=== PATIENT | male | born 1985 | race Caucasian/White ===

== ENCOUNTER 2021-11-14 13:52 | Emergency (ER) | payer OTHER, SELFPAY ==
[2021-11-14 14:12] VITALS: BP 135/84; PULSE 76; RESP 14; TEMP 36.8; O2SAT 99
--- NOTE | 2021-11-14 15:00 | ED.EAR ---
HPI - Ear Problem General Chief complaint: Ear Stated complaint: Left ear discharge, fullness Time Seen by Provider: 11/14/21 14:50 Source: patient, RN notes reviewed and old records reviewed Mode of arrival: ambulatory Limitations: no limitations History of Present Illness HPI Narrative: 36-year-old male who presents to [facility] care with complaints of 6-7 days pressure to his left ear. He states he has used his Debrox and liquid flush when he started having a pressure feeling in left ear 6-7 days ago with some yellowish wax removed. He reports that he continues to have symptoms of pain, pressure and decreased hearing to his left ear. He states that he has yellowish greenish drainage from his left ear. Patient denies any known fevers chills or sweats. MD Complaint: ear pain and ear discharge Location: left ear Discharge from ear: Reports yes - purulent Related Data Allergies Allergy/AdvReac Type Severity Reaction Status Date / Time amoxicillin Allergy Mild Rash Verified 11/14/21 14:25 Review of Systems Review of Systems: CONSTITUTIONAL: Denies fever, chills, or sweats. EYES: Denies visual changes, redness, or discharge. ENT: Denies rhinorrhea, congestion, sore throat, positive for left ear pain and pressure with drainage CARDIOVASCULAR: Denies chest pain, palpitations, or edema. RESPIRATORY: Denies cough or dyspnea. GASTROINTESTINAL: Denies abdominal pain, nausea, vomiting, or diarrhea. GENITOURINARY: Denies dysuria or hematuria. SKIN: Denies rash or itching. MUSCULOSKELETAL: Denies back pain, joint pain, or myalgia. NEUROLOGIC: Denies headache, numbness, or weakness. PSYCHIATRIC: Denies anxiety or depression. All systems reviewed & are unremarkable except as noted in HPI and below PMFSH Past Medical History Medical History (Updated 11/16/21 @ 11:09 by Rose Mary Santos NP) Ear infection Surgical History Surgical History (Updated 11/16/21 @ 11:02 by Rose Mary Santos NP) History of placement of ear tubes Social History Social History (Updated 11/16/21 @ 11:02 by Rose Mary Santos NP) Smoking status: Never smoker Alcohol intake: current Alcohol use details: social Substance use: never Living arrangements: with family Gender identity (if verbalized by the patient): Male Comments At time of signature, agree with nursing past medical, surgical, social and family history. There is no relevant family history pertinent to the presenting complaint Exam Narrative: GENERAL: Well-appearing, well-nourished, and in no acute distress. HEAD: Normocephalic, atraumatic. EYES: PERRLA and EOMI. ENT: Nares clear, no rhinorrhea or epistaxis. Mucous membranes moist. Right TM normal with good light reflex, left TM red with yellow-greenish drainage, throat pink with no lesions or exudates or tonsil swelling. CHEST: Clear to auscultation. No respiratory distress.SAO2 99%on room air HEART: Regular rate and rhythm. No murmur heard. Normal peripheral pulses. ABDOMEN: Soft, nontender, nondistended, normal active bowel sounds. EXTREMITIES: Normal range of motion. No edema. SKIN: Warm, dry, no rash. NEURO: No focal deficits. Alert and oriented x3. Course Course Level of Care: Express Care Visit Vital Signs Vital signs: Vital Signs Temperature 36.8 C 11/14/21 14:12 Pulse Rate 76 11/14/21 14:12 Respiratory Rate 14 11/14/21 14:12 Blood Pressure 135/84 11/14/21 14:12 Pulse Oximetry 99 11/14/21 14:12 Oxygen Delivery Room Air 11/14/21 14:12 Temperature 36.8 C 11/14/21 14:12 Pulse Rate 76 11/14/21 14:12 Respiratory Rate 14 11/14/21 14:12 Blood Pressure 135/84 11/14/21 14:12 Pulse Oximetry 99 11/14/21 14:12 Oxygen Delivery Room Air 11/14/21 14:12 Medical Decision Making Differential Diagnosis Differential Diagnosis: URI. otitis externa, otitis media, left ear otalgia, decreased hearing left ear Medical Records Medical records reviewed: Yes I reviewed the external patient
== END 2021-11-14 15:16 | disposition home or self-care (01) ==
PROVIDERS: Emergency Provider Registered Nurse
DX: H66.92 Otitis media, unspecified, left ear (principal)
CPT/HCPCS: 99213; G0463

== ENCOUNTER 2023-06-07 13:49 | Emergency (ER) | payer OTHER, SELFPAY ==
[2023-06-07 14:04] VITALS: BP 152/87; PULSE 60; RESP 16; TEMP 36.3; O2SAT 99
--- NOTE | 2023-06-07 14:10 | ED.SKABFB ---
HPI - Skin/Abscess/Foreign Bdy General Chief complaint: Skin/Abscess/Foreign Body Stated complaint: Cyst on top of head Time Seen by Provider: 06/07/23 14:10 Source: patient, RN notes reviewed and old records reviewed Mode of arrival: ambulatory Limitations: no limitations History of Present Illness HPI narrative: 38-year-old male presents to the [facility] with a cyst to the top of his head that is been there for years, started draining couple days ago. Purulent drainage noted Onset (ago): day(s) (2-3) Related Data Allergies Allergy/AdvReac Type Severity Reaction Status Date / Time amoxicillin Allergy Mild Rash Verified 11/14/21 14:25 Review of Systems Review of Systems: All systems reviewed & are unremarkable except as noted in HPI and below Constitutional: Constitutional: Reports no additional constitutional complaints Eyes: Eyes: Reports no additional eye complaints ENT: Reports system reviewed and no additional complaints, except as documented Cardiovascular: Cardiovascular: Reports no additional cardiovascular complaints, Denies chest pain and Denies dyspnea Respiratory: Respiratory: Reports no additional respiratory complaints, Denies chest congestion, Denies cough and Denies dyspnea Gastrointestinal: Gastrointestinal: Reports no additional gastrointestinal complaints, Denies abdominal pain, Denies nausea and Denies vomiting Musculoskeletal: Musculoskeletal: Reports no additional musculoskeletal complaints Integumentary/Breasts: Skin/Breast: Reports as per HPI Neurologic: Reports system reviewed and no additional complaints, except as documented Psychiatric: Psychiatric: Reports no additional psychiatric complaints Allergic/Immunologic: Allergic/Immunologic: Reports no additional allergic/immunologic complaints PMFSH Past Medical History Medical History Ear infection Surgical History Surgical History History of placement of ear tubes Social History Social History Smoking status: Never smoker Alcohol intake: current Alcohol use details: social Substance use: never Living arrangements: with family Gender identity (if verbalized by the patient): Male Comments At the time of my signature, I reviewed and agree with the nursing past medical, surgical, social, and family history. There is no relevant family history pertinent to the patient complaint. Exam Const: General: cooperative, healthy appearing, comfortable, no acute distress, well developed, alert and well nourished Nutritional Appearance: well nourished Orientation/consciousness: patient oriented x3 Limitations: no limitations HENMT: Head: normal to inspection Head images: 1. 2 x 3 cm cyst, open, draining green yellow purulent drainage. Mild erythema Ears: hearing grossly normal bilaterally and external ears normal Face/Nose/Sinus: Normal external nose present, Normal nares present, Normal nasal mucous membranes and turbinates present, normal facial exam and face symmetric Face and sinus: normal facial exam and face symmetric Mouth: Yes Normal oral and palatal mucosa present, Yes lip normal and Yes moist mucous membranes Throat: posterior oropharynx normal and uvula midline Eyes: General: appearance normal, both eyes and all related structures Alignment and Position: alignment normal Periorbital: periorbital findings normal Pupils: Equal, round and reactive pupils present EOM: EOMs intact bilaterally Neck: Neck: normal visual inspection, full ROM, no lymphadenopathy and no meningeal signs Chest: Chest palpation & inspection: normal inspection of the chest Resp: Effort & Inspection: normal respiratory effort and able to speak in complete sentences Auscultation: clear to auscultation bilaterally, no crackles, no rales, no rhonchi and no wheezes Cardio: Rat
== END 2023-06-07 14:50 | disposition home or self-care (01) ==
PROVIDERS: Emergency Provider Nurse Practitioner; PCP Hospitalist
DX: L72.9 Follicular cyst of the skin and subcutaneous tissue, unspecified (principal)
CPT/HCPCS: 87070; 87205; 99213; G0463

== ENCOUNTER → 2023-07-03 15:40 | Outpatient (REF) | payer OTHER, SELFPAY | LOC: ANHLAB 15:40 | PROVIDERS: PCP Hospitalist; Visit Provider Plastic Surgery | DX: L72.11 Pilar cyst (principal) | CPT/HCPCS: 88305 ==

== ENCOUNTER 2024-09-03 11:15 | Emergency (ER) | payer OTHER, SELFPAY ==
[2024-09-03 11:19] VITALS: BP 144/93; PULSE 96; RESP 18; TEMP 35.8; O2SAT 97
--- OUTSIDE RECORDS SUMMARY | 2024-09-03 11:26 | XMS_ITS | Clinical Summary ---
Author Organization [facility] [place] [facility] Address [address] [address] Care Team Providers Care Internal Sales Name Role Phone Kurtis Quiroz MD Primary Care Provider [phone] Allergies Active Allergy Reactions Criticality Noted Date Comments Amoxicillin Rash Medium 01/02/2024 Medications No known medications Active Problems Problem Noted Date Diagnosed Date Class 2 obesity due to exces s calories without serious comorbidity with body mass index (BMI) of 38.0 to 38.9 in adult 01/02/2024 Assessment & Plan (01/02/2024 11:18 AM CDT): Improving; patient reports that he has been working on weight loss, has lost nearly 20 lb over the past 1-1.5 years Continue with dietary changes to reduce caloric intake; continue with regular physical activity Exposure to chemical compounds 01/02/2024 Assessment & Plan (01/02/2024 11:20 AM CDT): Patient reports exposure to chemicals during previous and current job; including agricultural and industrial compounds Patient makes good use of personal protective equipment to reduce exposure No signs or symptoms of disease secondary to exposure Family history of cancer 01/02/2024 Assessment & Plan (01/02/2024 11:20 AM CDT): Patient has multiple episodes of cancer on paternal side; will continue with routine screening of cancers Immunizations Immunization Administration Dates Next Due DTP 01/01/1986, 5,1984,1984 MMR 12/04/1985 OPV 01/01/1986, 5,1984,1984 Pfizer SARS-CoV-2 Monovalent Vaccination (12+ Yrs) PURPLE 05/09/2021,04/20/2021,02/28/2021 Td, adsorbed 11/26/1998 Surgical History Surgery Date Site/Laterality Comments CYST REMOVAL 06/22/2023 - 07/22/2023 [facility]; cyst located on pt head Family History Medical History Relation Name Comments Cancer Father's Sister Cancer Maternal Grandmother Cancer Paternal Grandfather Esophageal cancer Paternal Grandfather to bacco use Breast cancer Paternal Grandmother Cancer Paternal Grandmother Relation Name Status Comments Father's Sister Maternal Grandmother Paternal Grandfather Paternal Grandmother Social History Tobacco Use Types Packs/Day Years Used Date Smoking Tobacco: Never Smokeless Tobacco: Never Tobacco Cessation:Counseling Given: Not Answered AUDIT-C Answer Date Recorded Q1: How often do you have a drink containing alc ohol? 2-3 times a week 01/02/2024 Q2: How many drinks containi ng alcohol do you have on a typical day when you are drinking? 5 or 6 01/02/2024 Q3: How often do you have si x or more drinks on one occasion? 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 Gender Identity Not on file Sexual Orientation Not on file Obstetrics History Last Filed Vital Signs Vital Sign Reading Time Taken Comments Blood Pressure 120/80 01/02/2024 8:14 AM CDT Pulse 72 01/02/2024 8:14 AM CDT Temperature 36.6 C (97.8 F) 01/02/2024 8:14 AM CDT Respiratory Rate 18 01/02/2024 8:14 AM CDT Oxygen Saturation 98% 01/02/2024 8:14 AM CDT Inhaled Oxygen Concentration - - Weight 129.2 kg (284 lb 12.8 oz) 01/02/2024 8:14 AM CDT Height 182.9 cm (6') 01/02/2024 8:14 AM CDT Body Mass Index 38.63 01/02/2024 8:14 AM CDT Plan of Treatment Health Maintenance Due Date Last Done Comments Varicella Vaccines (1 of 2 - 13+ 2-dose series) 1997 DTaP/Tdap/Td Vaccine (5 - Tdap) 11/27/1998 11/26/1998, 01/01/1986, 1984, Additional history exists Covid-19 Vaccine ( season) 2023 05/09/2021, 04/20/2021, 02/28/2021 Influenza Vaccine (Season Ended) 2024 Depression Screening 01/01/2025 01/02/2024 Regular Well Visit/Exam 18-64 01/01/2025 01/02/2024 Hepatitis B Screening Completed 01/02/2024 Hepatitis C Screening Completed 01/02/2024 HPV Vaccines Aged Out No longer eligi ble based on patient's age to complete this topic Pneumococcal vaccine <65 Aged Out No longer eligible based on patient's age to complete this topic Procedures Procedure Name Priority Date/Time Associated Diagnosis Comments HEPATITIS C ANTIBODY Routine 01/02/2024 9:05 AM CDT Encounter for hepatitis C screening test for low risk patient from Last 3 Months or Most Recently Relevant to Health Maintenance Results * Hepatitis C antibody Blood (01/02/2024 9:05 AM CDT) Hep C Ab Nonreactive Nonreactive Comment: Interpretive Data Nonreactive: Antibodies to HCV not detected. Does NOT exclude the possibility of recent exposure to HCV. Equivocal: Equivocal for HCV antibodies. Supplemental molecular testing will be automatically performed to determine infection status in accordance with current CDC screening recommendations. Reactive: Positive for HCV antibodies. This may represent current or past HCV infection. Supplemental molecular testing will be automatically performed to determine current infection status in accordance with current CDC screening recommendations. Interpretive data was last revised on 2019. Testing performed by: [facility], [address] [place] [address], [place]., [address] Blood 01/02/2024 9:05 AM CDT 01/02/2024 12:43 PM CDT Kurtis Quiroz MD LAB MICROBIOLOGY - GENERA L ORDERABLES Final Result [facility] [address] [facility] Department [place] [address] from Last 3 Months or Most Recently Relevant to Health Maintenance Insurance [facility] [facility] HMO Care Teams Internal Sales Relationship Specialty Start Date End Date [place] [address] PCP - General Family Medicine 01/02/24
--- OUTSIDE RECORDS SUMMARY | 2024-09-03 11:26 | XMS_ITS | Referral Summary ---
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 Testing performed by: [facility], [address] [place] [address], [place]., [address] Blood 01/02/2024 9:05 AM CDT 01/02/2024 12:43 PM CDT Kurtis Quiroz MD LAB MICROBIOLOGY - GENERA L ORDERABLES Final Result [facility] Department [place] [address] from Last 3 Months or Most Recently Relevant to Health Maintenance Insurance [facility] HMO Care Teams Elevator Constructor Supervisor Relationship Specialty Start Date End Date Kurt[place] [address] PCP - General Family Medicine 01/02/24
[2024-09-03 11:40] LABS: EDCOVIDSCREEN Negative (Negative); EDINFLUASCREEN Negative (Negative); EDINFLUBSCREEN Negative (Negative)
--- NOTE | 2024-09-03 11:41 | ED_ITS ---
HPI - URI/Sore Throat General Chief Complaint: Upper Respiratory Infection Stated Complaint: cough/fever Time Seen by Provider: 09/03/24 11:42 Source: patient and RN notes reviewed Mode of arrival: ambulatory Limitations: no limitations History of Present Illness HPI Narrative: 39-year-old male presents with concern for 2 week history of persistent cough. Reports over the last few days he has had sneezing, runny nose, stuffy nose. Reports he has taken multiple [id number] medications without relief. He reports fever, chills, aches, sweats MD elicited complaint: cough and sore throat Related Data Allergies Allergy/AdvReac Type Severity Reaction Status Date / Time amoxicillin Allergy Intermediate Rash Verified 09/03/24 11:27 Review of Systems Review of Systems: CONSTITUTIONAL: Reports that malaise, chills, sweats, fever. EYES: Denies visual changes, redness, or discharge. ENT: Reports rhinorrhea, congestion, and sore throat. CARDIOVASCULAR: Denies chest pain, palpitations, or edema. RESPIRATORY: Reports cough. Denies dyspnea. GASTROINTESTINAL: Denies abdominal pain, nausea, vomiting, diarrhea SKIN: Denies rash or itching. MUSCULOSKELETAL: Denies myalgia. NEUROLOGIC: Denies headache. All systems reviewed & are unremarkable except as noted in HPI and below PMFSH Past Medical History Medical History Ear infection Surgical History Surgical History History of placement of ear tubes Social History Social History Smoking status: Never smoker Alcohol intake: current Alcohol use details: social Substance use: never Living arrangements: with family Gender identity (if verbalized by the patient): Male Comments At time of signature, agree with nursing past medical, surgical, social and family history. There is no relevant family history pertinent to the presenting complaint Exam Narrative: GENERAL: Well-appearing, well-nourished, and in no acute distress. HEAD: Normocephalic EYES: PERRLA, conjunctivae clear ENT: Nares clear. Mucous membranes moist. TM pearly peña with dull light reflex bilaterally; no tragal tenderness. Oropharynx not erythematous without lesions. Tonsils not enlarged and without exudate, no drooling, no hoarseness, no trismus, uvula midline. NECK: Supple. No lymphadenopathy CHEST: Clear to auscultation, breath sounds equal. No wheezing, rhonchi, rales, or stridor. No respiratory distress, speaks in full sentences. Cough noted HEART: Regular rate and rhythm. No murmur heard. SKIN: Warm, dry, no rash. NEURO: Alert and oriented x3. PSYCH: Normal mood and affect Course Course Emergency Course: Patient is aware of diagnosis, understands and agrees to treatment plan. Anticipatory guidance given. Patient agrees to follow-up as directed and is aware of reasons to seek care at the emergency department. Portions of this record may have been created with voice recognition software Level of Care: Express Care Visit Vital Signs Vital signs: Vital Signs Temperature 96.4 F L 09/03/24 11:19 Pulse Rate 96 09/03/24 11:19 Respiratory Rate 18 09/03/24 11:19 Blood Pressure 144/93 H 09/03/24 11:19 Pulse Oximetry 97 09/03/24 11:19 Oxygen Delivery Room Air 09/03/24 11:19 Temperature 96.4 F L 09/03/24 11:19 Pulse Rate 96 09/03/24 11:19 Respiratory Rate 18 09/03/24 11:19 Blood Pressure 144/93 H 09/03/24 11:19 Pulse Oximetry 97 09/03/24 11:19 Oxygen Delivery Room Air 09/03/24 11:19 Reviewed. MDM - URI/Sore Throat MDM Narrative Medical decision making narrative: Differential diagnosis considered: Carranza virus, strep pharyngitis, allergic rhinitis, upper respiratory tract infection, sinusitis, rhinosinusitis, nasopharyngitis. viral pharyngitis, otitis media, otitis externa, pneumonia, bronchitis, viral cough syndrome, viral syndrome, and influenza. Exam findings show no acute concerns or changes; patient is non-toxic appearing and is in no distress. Patient is appropriate for outpatient treatment and follow-up. Lab Data Attestation: I reviewed the patient's lab results. Labs: Lab Results 09/03/24 Range/Units 11:36 POC Influenza A Ag Negative (Negative) POC Influenza B Ag Negative (Negative) POC SARS CoV-2 Ag Negative (Negative) Critical Care Time Critical Care Time Critical Care Time: No Discharge Plan Discharge Clinical Impression: Lower respiratory tract infection Patient Disposition: Home Condition: Stable Instructions: Antibiotic Form, Acute Cough (ED) Additional Instructions: 1) Please follow-up with your primary care doctor in the next 1-2 days. 2) If you have any worsening of symptoms or any other urgent concerns please go to the ER. 3) Please take medications as prescribed and continue taking your home medications as usual. 4) Please read and follow information included in discharge instructions. Patient Language: [place] Prescriptions: New promethazine-DM 6.25-15 mg/5 mL syrup 5 ml PO Q4-6H PRN (Reason: cough) Qty: 120 0RF azithromycin [Zithromax Z-Vikram] 250 mg tablet See Rx Instructions .ROUTE .COMPLEX Qty: 6 0RF Rx Instructions: take 500 mg today (day 1), then 250 mg for 4 days (days 2-5) methylprednisolone [Medrol (Vikram)] 4 mg tablets,dose pack See Rx Instructions .ROUTE .COMPLEX Qty: 21 0RF Rx Instructions: orally per package directions Follow-up/Referrals: Gabriella,MD Kurtis [Primary Care Provider] - Stand Alone Forms: Work/School Release IP Time of Disposition: 11:49
== END 2024-09-03 11:56 | disposition home or self-care (01) ==
PROVIDERS: Emergency Provider Nurse Practitioner; PCP Hospitalist
DX: J22 Unspecified acute lower respiratory infection (principal); Z20.822 Contact with and (suspected) exposure to COVID-19
CPT/HCPCS: 87426; 87804; 99213; G0463